=== PATIENT | female | born 1955 | race Caucasian/White ===

== ENCOUNTER 2016-07-15 08:37 | Outpatient (CLI) ==
[2016-03-30 12:26] VITALS: BMI 37.0
[2016-07-15 12:30] LABS: BASOPHILS % (AUTO) 0.6 % (0.0-3.0); EOSINOPHILS # (AUTO) 0.1 K/ul (0.0-0.7); EOSINOPHILS % (AUTO) 1.9 % (0.0-7.0); HEMATOCRIT 45.6 % (37.0-47.0); HEMOGLOBIN 14.7 g/dl (12.0-16.0); IMMATURE GRANULOCYTE % (AUTO) 0.3 % (0.0-5.0); LYMPHOCYTES # (AUTO) 1.3 K/uL (0.60-3.4); LYMPHOCYTES % (AUTO) 20.7 (10.0-50.0); MEAN CORPUSCULAR HEMOGLOBIN 28.6 pg (27.0-31.0); MEAN CORPUSCULAR HGB CONC 32.2 (31.8-35.4); MEAN CORPUSCULAR VOLUME 88.7 fl (81.0-99.0); MONOCYTES # (AUTO) 0.4 K/uL (0.4-2.0); MONOCYTES % (AUTO) 6.6 (0-10); NEUTROPHILS # (AUTO) 4.5 K/ul (2.0-6.9); NEUTROPHILS % (AUTO) 69.9; PLATELET COUNT 278 10^3/uL (140-440); RED BLOOD COUNT 5.14 10^6/ul (4.20-5.40); WHITE BLOOD COUNT 6.48 K/ul (4.6-10.2)
[2016-07-15 12:36] LABS: BILIRUBIN,URINE Negative (NEGATIVE); KETONES,URINE 2+ (NEGATIVE); LEUKOCYTE ESTERASE ,URINE Trace (NEGATIVE); NITRITE,URINE Negative (NEGATIVE); PH,URINE 5.5 (5-9); PROTEIN,URINE Negative (NEGATIVE); URINE, BLOOD Trace-lysed (NEGATIVE)
[2016-07-15 12:39] LABS: ADD URINE MICROSCOPIC YES
[2016-07-15 12:45] LABS: BACTERIA,URINE TRACE (NOT PRESENT)
[2016-07-15 12:52] LABS: ALBUMIN 3.8 g/dL (3.4-5.0); ALBUMIN/GLOBULIN RATIO 1.09; ANION GAP 17.5; BILIRUBIN,TOTAL 1.21 mg/dL (0.00-1.20); CALCIUM 10.3 mg/dL (8.2-10.2); CHOL/HDL RATIO 3.8 (4.5-5.5); CREATININE 0.65 mg/dL (0.60-1.30); POTASSIUM 4.5 mmol/L (3.5-5.10); TOTAL PROTEIN 7.3 g/dL (5.8-8.1)
== END 2016-07-15 08:38 | disposition home or self-care (01) ==
LOC: LAB 08:37
PROVIDERS: ATTEND General Practice
DX: E03.9 Hypothyroidism, unspecified (principal); E11.9 Type 2 diabetes mellitus without complications; E78.5 Hyperlipidemia, unspecified; I10 Essential (primary) hypertension; Z79.899 Other long term (current) drug therapy
CPT/HCPCS: 36415; 80053; 80061; 81001; 83036; 85025; 87086

== ENCOUNTER 2016-08-14 14:58 | Emergency (ER) ==
[2016-08-14 15:09] VITALS: BP 150/84; TEMP 97.5; BMI 43.9
--- NOTE | 2016-08-14 16:34 | DI ---
EXAM: Two views of the chest. History: Thoracic back pain. Comparison: Chest radiograph 01/01/2016 Findings: Upper limits of normal heart size. No focal consolidation. No appreciable pleural fluid and no pneumothorax. No acute osseous abnormalities. Degenerative disc disease of the thoracic sp ine with prominent anterior osteophytes. Small nodular density within the right upper lobe was not c learly seen on the prior studies. Impression: Small right upper lobe nodular density is indeterminate and recommended follow-up with chest radiograph in 3 - [address]
--- NOTE | 2016-08-14 16:35 | DI ---
EXAM: Three views of the thoracic spine. History: Thoracic back pain. Findings: Atherosclerotic vascular calcifications. No acute fracture or subluxation. Mild to mode rate multilevel degenerative disc space narrowing with moderate sized multilevel osteophytes. Impression: No acute osseous abnormality. Mild to moderate degenerative disc disease.
--- NOTE | 2016-08-14 16:48 | ED.PDOC ---
General ED Provider: Dr. RENEE LAWS Chief Complaint: Back Pain Stated Complaint: Back pain; 3 days - worsening at work ([employer]) with twisting and bending. Does not take anything stronger than Tylenol or Motrin. Time Seen by Physician: 16:05 Mode of Arrival: Walk-In Information Source: [facility] Documentation Reviewed and Agree: Yes Review of Systems - Review Of Systems Constitutional: Reports: No symptoms Respiratory: Reports: No symptoms. Denies: Cough, Orthopnea, Short of air Cardiac: Reports: No symptoms. Denies: Chest pain All Other Systems: Reviewed and Negative Past Medical History - Past Medical History Endocrine: Reports: DM 1, DM 2, Hypothyroid Cardiovascular: Reports: Hypertension, A-Fib Respiratory: Reports: None Hematological: Reports: None Gastrointestinal: Reports: None Genitourinary: Reports: None Neuro/Psych: Reports: None Musculoskeletal: Reports: Unknown Cancer: Reports: None Last Menstrual Period: hysterectomy Other Pertinent Past Medical History: IRREGULAR HEART BEAT - Surgical History General Surgical History: Reports: , Cholecystectomy, Hernia Repair, Other - Family History Family History: Reports: Unknown - Social History Smoking Status: Former smoker Hx Substance Use: No Alcohol Screening: None Physical Exam - Physical Exam Appearance: Ill-appearing Ill-appearing: Mild Pain Distress: Moderate Eyes: IAL, EOMI ENT: Oropharynx normal Neck: Supple Respiratory: Airway patent, Breath sounds clear, Respirations nonlabored Cardiovascular: RRR, Pulses normal Musculoskeletal: Normal strength, ROM intact Skin: Warm, Dry, Normal color Neurological: Sensation intact, Motor intact Psychiatric: Affect appropriate, Mood appropriate Critical Care Note - Critical Care Note Total Time (mins): 12 Course - Course Orders, Labs, Meds: Orders Category Date Time Status CHEST, 2 VIEWS PA & LAT Stat RADS 08/14/16 16:05 Completed THORACIC SPINE, 3 VIEWS Stat RADS 08/14/16 16:05 Completed Vital Signs: Temp Pulse Resp BP Pulse Ox 08/14/16 14:59 97.5 F L 81 20 150/84 H 95 Departure - Departure Time of Disposition: 16:44 Disposition: HOME SELF-CARE Discharge Problem: Thoracic back pain Instructions: Back Pain (ED) Condition: Stable Pt referred to PMD for follow-up: Yes (Call for appointment) Additional Instructions: Take two extra strength Tylenol and two Ibuprofen every 4 to 6 hours while awake for the next 2 days. Rest tonight and tomorow - no work. Use heating pad if available. Follow up with primary care next week if not better. Remind him of X rays taken in ER. Allergies/Adverse Reactions: Allergies No Known Drug Allergies Allergy (Unverified 03/30/16 12:17) Home Medications: Ambulatory Orders Aspirin [Aspirin Chewable] 81 mg PO DAILY 01/04/13 Cholecalciferol (Vitamin D3) [Vitamin D3] 2,000 unit PO DAILY 01/04/13 Sotalol HCl [Betapace] 40 mg PO BID #30 tablet 11/09/14 Gabapentin 300 mg PO BID 12/27/14 Cranberry Extract [Cranberry] 500 mg PO DAILY #30 tab-cap 05/28/15 Metformin HCl 500 mg PO BID #60 tab-cap 05/28/15 Hydrochlorothiazide 12.5 mg PO DAILY #30 tab-cap 08/28/15 Acetaminophen 2 tab PO Q6HR PRN 01/01/16 Multivitamin [Multi-Vitamin Daily] 1 each PO DAILY 01/01/16 Amlodipine Besylate 5 mg PO DAILY #30 tablet 01/03/16 Atorvastatin Calcium [Lipitor] 40 mg PO DAILY #30 tablet 01/03/16 Pantoprazole Sodium [Protonix] 40 mg PO QDAC #30 tablet 01/03/16 Escitalopram Oxalate 20 mg PO DAILY #30 tab-cap 01/07/16 Levothyroxine Sodium [Synthroid] 150 mcg PO DAILY 08/14/16 Disposition Discussed With: Patient
== END 2016-08-14 17:00 | disposition home or self-care (01) ==
LOC: ED 14:58
DX: M54.6 Pain in thoracic spine (principal); Z79.899 Other long term (current) drug therapy
CPT/HCPCS: 99282

== ENCOUNTER 2016-09-16 14:23 | Outpatient (CLI) ==
[2016-09-16 14:37] LABS: BILIRUBIN,URINE Negative (NEGATIVE); KETONES,URINE Negative (NEGATIVE); LEUKOCYTE ESTERASE ,URINE Trace (NEGATIVE); NITRITE,URINE Negative (NEGATIVE); PH,URINE 7.5 (5-9); PROTEIN,URINE Negative (NEGATIVE); URINE, BLOOD Negative (NEGATIVE)
[2016-09-16 14:40] LABS: ADD URINE MICROSCOPIC YES
[2016-09-16 14:41] LABS: BACTERIA,URINE TRACE (NOT PRESENT)
[2016-09-16 15:17] LABS: ALBUMIN 3.6 g/dL (3.4-5.0); ANION GAP 14.5; BUN/CREATININE RATIO 15.25; CALCIUM 9.9 mg/dL (8.2-10.2); CREATININE 0.59 mg/dL (0.60-1.30); PHOSPHORUS 2.7 mg/dL (2.8-4.1); POTASSIUM 4.5 mmol/L (3.5-5.10)
== END 2016-09-16 14:24 | disposition home or self-care (01) ==
LOC: LAB 14:23
PROVIDERS: ATTEND General Practice
DX: E11.9 Type 2 diabetes mellitus without complications (principal); E78.5 Hyperlipidemia, unspecified; I10 Essential (primary) hypertension; R31.9 Hematuria, unspecified
CPT/HCPCS: 36415; 80069; 81001; 83036; 84443; 87086

== ENCOUNTER 2016-09-22 10:38 | Outpatient (CLI) ==
[2016-09-22 10:54] LABS: BASOPHILS % (AUTO) 0.5 % (0.0-3.0); EOSINOPHILS # (AUTO) 0.1 K/ul (0.0-0.7); EOSINOPHILS % (AUTO) 1.3 % (0.0-7.0); HEMATOCRIT 44.1 % (37.0-47.0); HEMOGLOBIN 14.7 g/dl (12.0-16.0); IMMATURE GRANULOCYTE % (AUTO) 0.1 % (0.0-5.0); LYMPHOCYTES # (AUTO) 1.7 K/uL (0.60-3.4); LYMPHOCYTES % (AUTO) 21.4 (10.0-50.0); MEAN CORPUSCULAR HEMOGLOBIN 28.7 pg (27.0-31.0); MEAN CORPUSCULAR HGB CONC 33.3 (31.8-35.4); MONOCYTES # (AUTO) 0.5 K/uL (0.4-2.0); MONOCYTES % (AUTO) 6.1 (0-10); NEUTROPHILS # (AUTO) 5.5 K/ul (2.0-6.9); NEUTROPHILS % (AUTO) 70.6; PLATELET COUNT 296 10^3/uL (140-440); RED BLOOD COUNT 5.13 10^6/ul (4.20-5.40); WHITE BLOOD COUNT 7.72 K/ul (4.6-10.2)
[2016-09-22 11:29] LABS: ALBUMIN 3.7 g/dL (3.4-5.0); ANION GAP 15.1; BLOOD UREA NITROGEN 11 mg/dL (7-18); BUN/CREATININE RATIO 17.74; CALCIUM 10.3 mg/dL (8.2-10.2); CARBON DIOXIDE 23 mmol/L (23-31); CHLORIDE 107 mmol/L (98-107); CREATINE KINASE 30 U/L; CREATININE 0.62 mg/dL (0.60-1.30); GLUCOSE 208 mg/dL (82-115); PHOSPHORUS 3.2 mg/dL (2.8-4.1); POTASSIUM 4.1 mmol/L (3.5-5.10); SODIUM 141 mmol/L (136-145)
--- NOTE | 2016-09-22 12:10 | DI ---
EXAM: Two views of the chest. History: Chest pain. Comparison: Chest radiograph 08/14/2016 Findings: Heart size is normal. No focal consolidation. No appreciable pleural fluid and no pneum othorax. No acute osseous abnormalities. Degenerative changes of the spine again noted. The right upper lobe nodular density is no longer clearly seen. Impression: No acute cardiopulmonary process.
== END 2016-09-22 10:39 | disposition home or self-care (01) ==
LOC: LAB 10:38
PROVIDERS: ATTEND General Practice
DX: R07.9 Chest pain, unspecified (principal); R68.84 Jaw pain; M79.602 Pain in left arm
CPT/HCPCS: 36415; 80069; 82550; 83036; 84484; 85025; 93005; 93010

== ENCOUNTER 2016-09-23 06:38 | Outpatient (CLI) ==
[2016-09-23] MEDS ORDERED: DOBUTAMINE 250 ML IV ONE (07:12)
[2016-09-23] MEDS ORDERED: ATROPINE SULFATE PFS ONE (07:12)
--- NOTE | 2016-09-28 09:45 | ECHOSTRESS ---
Date of Exam: 09/23/16 [facility] Reason for Echo: CHEST PAIN, DOBUTAMINE STRESS-NO ISCHEMIA M-Mode Normal Adult Results LV Dimensions Normal Adult Results AoV Opening excursions >1.6 LVEDD-base- 3.5-5.8 Ao root dimensions 2.0-3.7 LVESD-base- 3.1-4.6 L. Atrium dimensions 1.9-3.8 Post. Wall thickness 0.8-1.1 IV septum (thickness) 0.7-1.2 Post. Wall excursion 0.72-1.3 Septal motion Systolic motion R. Ventricular cavity 1.5-2.0 LVEF 60% Paradoxical septal wall motion 2-D: NORMAL LEFT VENTRICULAR CONTRACTILITY--RESTING AND DURING DOBUTAMINE INFUSION M-MODE: MV: AV: TV: PV: CHAMBER SIZE: WALL MOTION: NORMAL LEFT VENTRICULAR CONTRACTILITY--RESTING AND DURING DOBUTAMINE INFUSION PERICARDIUM: INTERPRETATION: 1. NORMAL LEFT VENTRICULAR CONTRACTILITY--RESTING AND DURING DOBUTAMINE INFUSION MTDD
--- NOTE | 2016-09-28 10:31 | DOBSTECHO ---
Ordering Physician: DARYA LAY Date of Test: 09/23/16 Reason for Examination: CHEST PAIN, HYPERTENSION, HX OF A-FIB, LEFT JAW PAIN Current Medications: PANTOPRAZOLE, LEXAPRO, METFORMIN, GABAPENTIN, HCTZ, ATORVASTATIN, AMLODIPINE, LEVOTHYROXINE Height: 64" Weight: 214 LBS Target Heart Rate: 133/157 ST Segment Stage Time HR BPM BP mmhg Rhythm +/- Up Down Comments/Symptoms Control Sitting 61 142/80 SR X NONE Dobutamine 250mg/D5W 5cmg/KG/mn 10cmg/KG/mn 3:00 72 SR X NONE 15cmg/KG/mn 2:00 88 164/78 SR X NONE 20cmg/KG/mn 1:06 105 SR X NONE 25cmg/KG/mn 30cmg/KG/mn 35cmg/KG/mn 40cmg/KG/mn Time: 3" HR B/P Time: 6" HR B/P Time: 8" HR B/P Recovery 80 160/60 Recovery 77 150/70 Recovery 69 Total Time: 6:06 Maximum Heart Rate Reached: 105 Reason for Termination: DUE TO NAUSEA Interpretation: 1. NO EVIDENCE OF ISCHEMIA FROM RESTING HEART RATE 61/MINUTE TO 105/MINUTE WITH DOBUTAMINE INFUSION 2. NO CHEST PAIN OR CHEST DISCOMFORT 3. NORMAL LEFT VENTRICULAR CONTRACTILITY--RESTING AND POST EXERCISE 4. TEST STOPPED DUE TO PATIENT BEING NAUSEATED MTDD
== END 2016-09-23 06:39 | disposition home or self-care (01) ==
LOC: CAR 06:38
PROVIDERS: ATTEND General Practice
DX: R07.9 Chest pain, unspecified (principal); M79.602 Pain in left arm; R68.84 Jaw pain

== ENCOUNTER 2016-11-25 12:02 | Outpatient (CLI) ==
[2016-11-25 13:44] LABS: ALBUMIN 3.6 g/dL (3.4-5.0); ANION GAP 13.6; BUN/CREATININE RATIO 21.66; CALCIUM 10.2 mg/dL (8.2-10.2); CREATININE 0.6 mg/dL (0.60-1.30); PHOSPHORUS 3.5 mg/dL (2.8-4.1); POTASSIUM 4.6 mmol/L (3.5-5.10)
== END 2016-11-25 12:03 | disposition home or self-care (01) ==
LOC: LAB 12:02
PROVIDERS: ATTEND General Practice
DX: E11.9 Type 2 diabetes mellitus without complications (principal)
CPT/HCPCS: 36415; 80069; 83036

== ENCOUNTER 2016-12-02 12:44 | Outpatient (CLI) ==
--- NOTE | 2016-12-04 11:18 | MAMMO ---
EXAM: Digital screening mammogram HISTORY: Screening COMPARISON: 10/30/2010 FINDINGS: Digital MLO and CC views of the right and left breast were performed. There are scatter ed fibroglandular densities. There is no evidence for mass, asymmetry, distortion, or suspicious ca lcifications in either breast. IMPRESSION: 1. No evidence of malignancy in the right or left breast. 2. Annual screening mammogram is recommended in one year. BIRADS category 1, negative examination
== END 2016-12-02 12:45 | disposition home or self-care (01) ==
LOC: RAD 12:44
PROVIDERS: ATTEND General Practice
DX: Z12.31 Encounter for screening mammogram for malignant neoplasm of breast (principal)

== ENCOUNTER 2017-01-20 14:01 | Outpatient (CLI) ==
[2017-01-20 14:10] LABS: BASOPHILS % (AUTO) 0.6 % (0.0-3.0); EOSINOPHILS # (AUTO) 0.1 K/ul (0.0-0.7); EOSINOPHILS % (AUTO) 1.9 % (0.0-7.0); HEMATOCRIT 45.6 % (37.0-47.0); HEMOGLOBIN 15.1 g/dl (12.0-16.0); IMMATURE GRANULOCYTE % (AUTO) 0.3 % (0.0-5.0); LYMPHOCYTES # (AUTO) 1.7 K/uL (0.60-3.4); LYMPHOCYTES % (AUTO) 26.3 (10.0-50.0); MEAN CORPUSCULAR HEMOGLOBIN 28.5 pg (27.0-31.0); MEAN CORPUSCULAR HGB CONC 33.1 (31.8-35.4); MONOCYTES # (AUTO) 0.5 K/uL (0.4-2.0); MONOCYTES % (AUTO) 7.3 (0-10); NEUTROPHILS # (AUTO) 4.1 K/ul (2.0-6.9); NEUTROPHILS % (AUTO) 63.6; PLATELET COUNT 347 10^3/uL (140-440); WHITE BLOOD COUNT 6.46 K/ul (4.6-10.2)
== END 2017-01-20 14:02 | disposition home or self-care (01) ==
LOC: LAB 14:01
PROVIDERS: ATTEND General Practice
DX: E11.9 Type 2 diabetes mellitus without complications (principal); E78.5 Hyperlipidemia, unspecified; I10 Essential (primary) hypertension
CPT/HCPCS: 36415; 82947; 83036; 85025

== ENCOUNTER 2017-02-02 12:29 | Outpatient (CLI) ==
[2017-01-21 08:33] VITALS: BMI 35.9
--- NOTE | 2017-02-03 14:17 | HOLTER ---
PATIENT INFORMATION AND COMMENTS Indications: Atrial Fibrillation with RVR, SOB, FATIGUE Attending Physician: Dr. Aldo Cerda __ Patient Medications: BETAPACE, PROTONIX, METFORMIN, SYNTHROID, HCTZ, GABAPENTIN , LEXAPRO, TRULICITY, CARDIZEM, INVOKANA, LIPITOR, ELIQUIS __ Pre-procedure Summary: Protocol: Standard Heart Rate Started: 02/02/17 1250 Minimum: 53 BPM Weight: 204 LBS Ended: 02/03/17 1250 Maximum: 131 BPM Height: 64" Duration: 24 HOURS Average: 66 BPM _ INTERPRETATIONS/OBSERVATIONS: 1. BASIC RHYTHM: SINUS, RATE 50 BPM TO 100 BPM, AVERAGE 66 BPM 2. INFREQUENT PREMATURE VENTRICULAR CONTRACTIONS NOTED, 3% OF BEATS SCANNED PREMATURE ATRIAL CONTRACTIONS 3. NO TACHY OR ROSA ARRHYTHMIAS 4. NO ST CHANGES FROM BASELINE 5. NO CORRELATION WITH ACTIVITY LOG MTDD
== END 2017-02-02 12:30 | disposition home or self-care (01) ==
LOC: CAR 12:29
PROVIDERS: ATTEND General Practice
DX: I48.91 Unspecified atrial fibrillation (principal); R06.02 Shortness of breath; R53.83 Other fatigue
CPT/HCPCS: 93227

== ENCOUNTER 2017-04-06 15:52 | Outpatient (CLI) ==
[2017-01-21 08:33] VITALS: BMI 35.9
[2017-04-06 16:04] LABS: BASOPHILS # (AUTO) 0.1 K/uL (0-0.2); BASOPHILS % (AUTO) 0.6 % (0.0-3.0); EOSINOPHILS # (AUTO) 0.1 K/ul (0.0-0.7); EOSINOPHILS % (AUTO) 1.7 % (0.0-7.0); HEMATOCRIT 45.9 % (37.0-47.0); HEMOGLOBIN 14.9 g/dl (12.0-16.0); IMMATURE GRANULOCYTE % (AUTO) 0.5 % (0.0-5.0); LYMPHOCYTES # (AUTO) 2.5 K/uL (0.60-3.4); LYMPHOCYTES % (AUTO) 30.5 (10.0-50.0); MEAN CORPUSCULAR HEMOGLOBIN 28.4 pg (27.0-31.0); MEAN CORPUSCULAR HGB CONC 32.5 (31.8-35.4); MEAN CORPUSCULAR VOLUME 87.6 fl (81.0-99.0); MONOCYTES # (AUTO) 0.6 K/uL (0.4-2.0); MONOCYTES % (AUTO) 7.1 (0-10); NEUTROPHILS # (AUTO) 4.8 K/ul (2.0-6.9); NEUTROPHILS % (AUTO) 59.6; PLATELET COUNT 320 10^3/uL (140-440); RED BLOOD COUNT 5.24 10^6/ul (4.20-5.40); WHITE BLOOD COUNT 8.03 K/ul (4.6-10.2)
[2017-04-06 16:06] LABS: BILIRUBIN,URINE Negative (NEGATIVE); KETONES,URINE Negative (NEGATIVE); LEUKOCYTE ESTERASE ,URINE Negative (NEGATIVE); NITRITE,URINE Negative (NEGATIVE); PROTEIN,URINE Negative (NEGATIVE); URINE, BLOOD Trace-intact (NEGATIVE)
[2017-04-06 16:20] LABS: ADD URINE MICROSCOPIC YES
[2017-04-06 16:45] LABS: ALBUMIN 3.8 g/dL (3.4-5.0); ALBUMIN/GLOBULIN RATIO 1.09; ANION GAP 14.1; BILIRUBIN,TOTAL 1.19 mg/dL (0.00-1.20); BUN/CREATININE RATIO 22.22; CALCIUM 10.5 mg/dL (8.2-10.2); CHOL/HDL RATIO 3.5 (4.5-5.5); CREATININE 0.63 mg/dL (0.60-1.30); POTASSIUM 4.1 mmol/L (3.5-5.10); TOTAL PROTEIN 7.3 g/dL (5.8-8.1)
== END 2017-04-06 15:53 | disposition home or self-care (01) ==
LOC: LAB 15:52
PROVIDERS: ATTEND General Practice
DX: E03.9 Hypothyroidism, unspecified (principal); I48.91 Unspecified atrial fibrillation; E11.9 Type 2 diabetes mellitus without complications; E78.5 Hyperlipidemia, unspecified; I10 Essential (primary) hypertension; G62.9 Polyneuropathy, unspecified; Z79.899 Other long term (current) drug therapy
CPT/HCPCS: 36415; 80053; 80061; 81001; 83036; 84443; 85025

== ENCOUNTER 2017-08-03 13:46 | Outpatient (CLI) ==
[2017-01-21 08:33] VITALS: BMI 35.9
== END 2017-08-03 13:47 | disposition home or self-care (01) ==
LOC: FCC-LAB 13:46
PROVIDERS: ATTEND General Practice
DX: E11.9 Type 2 diabetes mellitus without complications (principal); R31.9 Hematuria, unspecified
CPT/HCPCS: 36415; 81001; 83036

== ENCOUNTER 2017-09-17 11:10 | Outpatient (CLI) | payer OTHER ==
[2017-01-21 08:33] VITALS: BMI 35.9
== END 2017-09-17 11:11 | disposition home or self-care (01) ==
LOC: FCC-LAB 11:10
PROVIDERS: ATTEND General Practice
DX: E11.9 Type 2 diabetes mellitus without complications (principal); E78.5 Hyperlipidemia, unspecified; I10 Essential (primary) hypertension
CPT/HCPCS: 36415; 80069; 83036

== ENCOUNTER 2017-11-15 09:11 | Outpatient (CLI) ==
[2017-01-21 08:33] VITALS: BMI 35.9
== END 2017-11-15 09:12 | disposition home or self-care (01) ==
LOC: FCC-LAB 09:11
PROVIDERS: ATTEND General Practice
DX: E11.9 Type 2 diabetes mellitus without complications (principal); E78.5 Hyperlipidemia, unspecified; I10 Essential (primary) hypertension; R31.9 Hematuria, unspecified; E03.9 Hypothyroidism, unspecified; I48.91 Unspecified atrial fibrillation
CPT/HCPCS: 36415; 82947; 83036

== ENCOUNTER 2017-12-03 07:46 | Outpatient (CLI) ==
[2017-01-21 08:33] VITALS: BMI 35.9
--- NOTE | 2017-12-03 09:51 | MAMMO ---
EXAM: Digital screening mammogram with tomosynthesis HISTORY: Screening COMPARISON: 12/02/2016 FINDINGS: Digital MLO and CC views of the right and left breast were performed. Tomosynthesis was performed. Computer aided detection utilized. There are scattered fibroglandular densities. Benign bilateral calcifications There is no evidence for mass, asymmetry, distortion, or suspicious calcific ations in either breast. IMPRESSION: 1. No evidence of malignancy in the right or left breast. 2. Annual screening mammogram is recommended in one year. BIRADS category 2, benign
== END 2017-12-03 07:47 | disposition home or self-care (01) ==
LOC: RAD 07:46
PROVIDERS: ATTEND General Practice
DX: Z12.31 Encounter for screening mammogram for malignant neoplasm of breast (principal)
CPT/HCPCS: 77067

== ENCOUNTER 2017-12-30 10:28 | Outpatient (CLI) ==
[2017-01-21 08:33] VITALS: BMI 35.9
== END 2017-12-30 10:29 | disposition home or self-care (01) ==
LOC: CAR 10:28
PROVIDERS: ATTEND Internal Medicine
DX: I48.91 Unspecified atrial fibrillation (principal)
CPT/HCPCS: 93005; 93010

== ENCOUNTER 2018-01-27 10:01 | Outpatient (CLI) ==
[2017-01-21 08:33] VITALS: BMI 35.9
== END 2018-01-27 10:02 | disposition home or self-care (01) ==
LOC: FCC-LAB 10:01
PROVIDERS: ATTEND General Practice
DX: E11.9 Type 2 diabetes mellitus without complications (principal)
CPT/HCPCS: 36415; 80053; 80061; 81001; 83036; 84443; 85025; 87086

== ENCOUNTER 2018-01-31 12:06 | Outpatient (CLI) ==
[2017-01-21 08:33] VITALS: BMI 35.9
== END 2018-01-31 12:07 | disposition home or self-care (01) ==
LOC: CAR 12:06
PROVIDERS: ATTEND General Practice
DX: I48.91 Unspecified atrial fibrillation (principal)
CPT/HCPCS: 93005; 93010

== ENCOUNTER 2018-03-28 18:23 | Outpatient (CLI) | payer OTHER ==
[2017-01-21 08:33] VITALS: BMI 35.9
== END 2018-03-28 18:24 | disposition home or self-care (01) ==
LOC: LAB 18:23
PROVIDERS: ATTEND General Practice
DX: E11.9 Type 2 diabetes mellitus without complications (principal); E03.9 Hypothyroidism, unspecified; E78.5 Hyperlipidemia, unspecified; Z79.899 Other long term (current) drug therapy
CPT/HCPCS: 36415; 80053; 80061; 81001; 83036; 85025

== ENCOUNTER 2018-08-09 08:06 | Outpatient (CLI) | payer OTHER ==
[2017-01-21 08:33] VITALS: BMI 35.9
== END 2018-08-09 08:07 | disposition home or self-care (01) ==
LOC: RHC-LAB 08:06
PROVIDERS: ATTEND General Practice
DX: E78.5 Hyperlipidemia, unspecified (principal); E11.9 Type 2 diabetes mellitus without complications; E03.9 Hypothyroidism, unspecified; I48.91 Unspecified atrial fibrillation; I10 Essential (primary) hypertension; Z79.899 Other long term (current) drug therapy
CPT/HCPCS: 36415; 80053; 80061; 81001; 83036; 84443; 85025

== ENCOUNTER 2018-09-09 17:07 | Emergency (ER) | payer OTHER ==
[2018-09-09 17:19] VITALS: BP 165/78; TEMP 99.4; BMI 37.8
--- NOTE | 2018-09-09 17:51 | ED.PDOC ---
General ED Provider: Dr. BARBARA VILLEGAS MD Chief Complaint: Respiratory Complaint Stated Complaint: head cold pressure Time Seen by Physician: 17:40 Mode of Arrival: Walk-In Information Source: Patient Exam Limitations: No limitations [facility] Documentation Reviewed and Agree: Yes Does patient meet sepsis criteria?: No If yes, has appropriate treatment been initiated?: Yes System Inflammatory Response Syndrome: Not Applicable Sepsis Protocol: For patient's 13 years and over: Temp is 96.8 and below OR 101 and greater Pulse >90 BPM Resp >20/minute Acutely Altered Mental Status Are patient's symptoms suggestive of a new infection, such as: -Pneumonia -Skin, Soft Tissue -Endocarditis -UTI -Bone, Joint Infection -Implantable Device -Acute Abdominal Infection -Wound Infection -Meningitis -Blood Stream Catheter Infection -Unknown Review of Systems - Review Of Systems Constitutional: Reports: Fever Eyes: Reports: No symptoms Ears, Nose, Mouth, Throat: Reports: No symptoms Respiratory: Reports: No symptoms Cardiac: Reports: No symptoms GI: Reports: No symptoms : Reports: No symptoms Musculoskeletal: Reports: No symptoms Skin: Reports: No symptoms Neurological: Reports: No symptoms Endocrine: Reports: No symptoms Hematologic/Lymphatic: Reports: No symptoms All Other Systems: Reviewed and Negative Past Medical History - Past Medical History Previously Healthy: Yes Endocrine: Reports: DM 1, DM 2, Hypothyroid Cardiovascular: Reports: Hypertension, A-Fib Respiratory: Reports: None Hematological: Reports: None Gastrointestinal: Reports: None Genitourinary: Reports: None Neuro/Psych: Reports: None Musculoskeletal: Reports: Unknown Cancer: Reports: None Last Menstrual Period: unknown Other Pertinent Past Medical History: IRREGULAR HEART BEAT - Surgical History General Surgical History: Reports: , Cholecystectomy, Hernia Repair, Other - Family History Family History: Reports: Unknown - Social History Smoking Status: Former smoker Hx Substance Use: No Alcohol Screening: None Physical Exam - Physical Exam Appearance: Well-nourished, Obese Ill-appearing: Mild Pain Distress: None Eyes: ILA, EOMI, Conjunctiva clear ENT: Ears normal, Oropharynx normal, Rhinorrhea Neck: Supple Respiratory: Airway patent, Breath sounds clear, Breath sounds equal, Respirations nonlabored Cardiovascular: RRR, Pulses normal, No rub, No murmur GI/: Soft, Nontender, No masses, Bowel sounds normal, No Organomegaly Musculoskeletal: Normal strength, ROM intact, No edema, No calf tenderness Skin: Warm, Dry, Normal color Neurological: Sensation intact, Motor intact, Reflexes intact, Cranial nerves intact, Alert, Oriented Psychiatric: Affect appropriate, Mood appropriate Critical Care Note - Critical Care Note Total Time (mins): 0 Course - Course Hematology/Chemistry: 09/09/18 18:02 09/09/18 18:02 Vital Signs: Temp Pulse Resp BP Pulse Ox 09/09/18 17:08 99.4 F 85 20 165/78 H 94 L Departure - Departure Time of Disposition: 19:00 Disposition: HOME SELF-CARE Discharge Problem: URI (upper respiratory infection) Qualifiers: URI type: unspecified viral URI Qualified Code(s): J06.9 - Acute upper respiratory infection, unspecified Instructions: Upper Respiratory Infection (ED) Condition: Good Pt referred to PMD for follow-up: Yes IPMP verified?: No Allergies/Adverse Reactions: Allergies No Known Drug Allergies Allergy (Verified 09/09/18 17:19) Home Medications: Ambulatory Orders Cholecalciferol (Vitamin D3) [Vitamin D3] 2,000 unit PO DAILY 01/04/13 Cranberry Fruit Extract [Cranberry] 500 mg PO DAILY #30 tab-cap 05/28/15 Atorvastatin Calcium [Lipitor] 40 mg PO DAILY #30 tablet 01/03/16 Pantoprazole Sodium [Protonix] 40 mg PO QDAC #30 tablet. 01/03/16 Transfer Form Completed: No Disposition Discussed With: Patient, Family
--- NOTE | 2018-09-09 18:57 | DI ---
EXAM: Two views of the chest. History: Chest pain, low oxygenation Comparison: Chest radiograph 01/21/2017 Findings: Heart size is upper limits of normal. Bronchial wall thickening. No consolidated pneumon ia. No appreciable pleural fluid and no pneumothorax. No acute osseous abnormalities. Degenerative changes of the thoracic spine. Impression: Bronchial wall thickening but no consolidated pneumonia
== END 2018-09-09 19:11 | disposition home or self-care (01) ==
LOC: ED 17:07
DX: J06.9 Acute upper respiratory infection, unspecified (principal)
CPT/HCPCS: 36415; 80048; 85025; 99282

== ENCOUNTER 2018-09-12 08:02 | Outpatient (CLI) | payer OTHER | END 2018-09-12 08:03 | disposition home or self-care (01) | LOC: RHC-LAB 08:02 | PROVIDERS: ATTEND General Practice | DX: E11.9 Type 2 diabetes mellitus without complications (principal); Z00.00 Encounter for general adult medical examination without abnormal findings; E78.5 Hyperlipidemia, unspecified; I10 Essential (primary) hypertension | CPT/HCPCS: 36415; 80053; 83036 ==

== ENCOUNTER 2018-09-14 10:14 | Outpatient (CLI) | payer OTHER ==
--- NOTE | 2018-09-14 10:46 | DI ---
EXAM: Two views of the chest. History: Cough. Comparison: Chest radiograph 09/09/2018 Findings: Heart size is upper limits of normal. Persistent central bronchial wall thickening. No c onsolidation. No pleural fluid and no pneumothorax. No acute osseous abnormalities. Degenerative c hanges of the spine again noted. Impression: Bronchial wall thickening but no consolidated pneumonia. No change compared to the prio r study.
== END 2018-09-14 10:15 | disposition home or self-care (01) ==
LOC: RAD 10:14
PROVIDERS: ATTEND General Practice
DX: R05 Cough (principal)

== ENCOUNTER 2018-09-14 11:34 | Outpatient (CLI) | payer OTHER | END 2018-09-14 11:35 | disposition home or self-care (01) | LOC: RHC-LAB 11:34 | PROVIDERS: ATTEND General Practice | DX: R05 Cough (principal); J02.9 Acute pharyngitis, unspecified | CPT/HCPCS: 87502; 87651 ==

== ENCOUNTER 2018-09-14 12:21 | Inpatient (IN) | payer OTHER ==
[2018-09-14 12:53] VITALS: BMI 37.5
[2018-09-14] MEDS ORDERED: ZITHROMAX 500 MG in SODIUM CHLORIDE 250 ML IV SCH (15:30)
[2018-09-14] MEDS: ROCEPHIN 2 GM in SODIUM CHLORIDE 100 ML IV SCH (17:46)
[2018-09-14] MEDS ORDERED: GLUCOPHAGE PO SCH (22:00)
[2018-09-14] MEDS ORDERED: CARDIZEM PO SCH (22:00)
[2018-09-15] MEDS: PROTONIX PO SCH (05:54)
[2018-09-15] MEDS ORDERED: SYNTHROID PO SCH (06:30)
[2018-09-15] MEDS ORDERED: CARDIZEM PO ONE (06:34)
[2018-09-15] MEDS ORDERED: CARDIZEM PO SCH ×2 (07:00→09:00)
[2018-09-15] MEDS: BETAPACE PO SCH ×3 (08:01→21:00)
[2018-09-15] MEDS: LIPITOR PO SCH (08:01)
[2018-09-15] MEDS: GLUCOPHAGE PO SCH ×2 (08:01→17:34)
[2018-09-15] MEDS: LEXAPRO PO SCH (08:01)
[2018-09-15] MEDS: HYDROCHLOROTHIAZIDE PO SCH (08:02)
[2018-09-15] MEDS: VITAMIN D PO SCH (08:03)
[2018-09-15] MEDS: K-DUR PO SCH ×2 (08:03→17:34)
[2018-09-15] MEDS: NON-FORMULARY MEDICATION (Cranberry Fruit Extract [Cranberry] 500 MG) PO SCH (08:04)
[2018-09-15] MEDS: ELIQUIS PO SCH ×2 (08:05→21:00)
[2018-09-15] MEDS ORDERED: NON-FORMULARY MEDICATION (Atorvastatin Calcium [Lipitor] 40 MG) PO SCH (09:00)
[2018-09-15] MEDS ORDERED: NON-FORMULARY MEDICATION (Cholecalciferol (Vitamin D3) [Vitamin D3] 2,000 UNIT) PO SCH (09:00)
[2018-09-15] MEDS ORDERED: NON-FORMULARY MEDICATION (Hydrochlorothiazide [Hydrochlorothiazide] 12.5 MG) PO SCH (09:00)
[2018-09-15] MEDS: ROCEPHIN 2 GM in SODIUM CHLORIDE 100 ML IV SCH (10:24)
--- NOTE | 2018-09-15 10:25 | RS.SLPCNOT ---
Speech Case Note Date of Note: 09/15/18 Title: Swallow Consult Note: RN called PHYSICAL METEOROLOGIST to discuss swallow consult. RN reported pt verbalized food stuck at the level of the esophagus and a new symptom of jaw tightness. The PHYSICAL METEOROLOGIST consulted with the patient which resulted in discovering pt has a Barretts esophagus for three years. She has new symptoms with the jaw tightening and not opening on command. She stated that the food is getting stuck more frequently and her appetite is poor. The PHYSICAL METEOROLOGIST discussed with the RN this date to refer to the MD about a barium swallow study to address the esophageal symptoms. If MD wants ST to perform MBSS or Bedside swallow evaluation to recommend swallow evaluation. The PHYSICAL METEOROLOGIST did discuss swallow strategies with the pt including pacing , bite size, and posture.
[2018-09-15] MEDS: CARDIZEM PO SCH (21:00)
[2018-09-16] MEDS: PROTONIX PO SCH (05:47)
[2018-09-16] MEDS: SYNTHROID PO SCH (05:49)
[2018-09-16] MEDS: ROCEPHIN 2 GM in SODIUM CHLORIDE 100 ML IV SCH (08:23)
[2018-09-16] MEDS: HYDROCHLOROTHIAZIDE PO SCH (08:23)
[2018-09-16] MEDS: BETAPACE PO SCH ×3 (08:23→22:25)
[2018-09-16] MEDS: K-DUR PO SCH ×2 (08:23→17:02)
[2018-09-16] MEDS: GLUCOPHAGE PO SCH ×2 (08:24→17:02)
[2018-09-16] MEDS: VITAMIN D PO SCH (08:24)
[2018-09-16] MEDS: LIPITOR PO SCH (08:25)
[2018-09-16] MEDS: CARDIZEM PO SCH ×2 (08:25→22:25)
[2018-09-16] MEDS: LEXAPRO PO SCH (08:25)
[2018-09-16] MEDS: NON-FORMULARY MEDICATION (Cranberry Fruit Extract [Cranberry] 500 MG) PO SCH (08:26)
[2018-09-16] MEDS: ELIQUIS PO SCH ×2 (08:26→21:09)
[2018-09-16] MEDS ORDERED: NON-FORMULARY MEDICATION (Dulaglutide [Trulicity] 1.5 MG) SUBCUT SCH (10:06)
[2018-09-16] MEDS ORDERED: CARDIZEM ONE (21:27)
[2018-09-16] MEDS ORDERED: CARDIZEM PO SCH (21:30)
[2018-09-17] MEDS: PROTONIX PO SCH (06:10)
[2018-09-17] MEDS: SYNTHROID PO SCH (06:10)
[2018-09-17] MEDS: K-DUR PO SCH ×2 (08:29→16:56)
[2018-09-17] MEDS: BETAPACE PO SCH (08:29)
[2018-09-17] MEDS: VITAMIN D PO SCH (08:29)
[2018-09-17] MEDS: ROCEPHIN 2 GM in SODIUM CHLORIDE 100 ML IV SCH (08:29)
[2018-09-17] MEDS: NON-FORMULARY MEDICATION (Cranberry Fruit Extract [Cranberry] 500 MG) PO SCH (08:29)
[2018-09-17] MEDS: HYDROCHLOROTHIAZIDE PO SCH (08:30)
[2018-09-17] MEDS: LIPITOR PO SCH (08:30)
[2018-09-17] MEDS: LEXAPRO PO SCH (08:30)
[2018-09-17] MEDS: GLUCOPHAGE PO SCH ×2 (08:30→16:56)
[2018-09-17] MEDS: ELIQUIS PO SCH (08:31)
[2018-09-17] MEDS ORDERED: CARDIZEM PO SCH (09:00)
[2018-09-17 14:19] VITALS: BP 113/71; TEMP 97.5
--- NOTE | 2018-09-19 07:50 | PN ---
DATE OF SERVICE: 09/16/18 SUBJECTIVE: The patient is feeling better, cough is much less. She is not dyspneic or tachypneic. LUNGS: Clear to auscultation HEART: Normal sinus rhythm most of the time, rate about 66. This patient is placed back on Cardizem 30mg twice a day which is the medication at home and the Sotalol is divided to 40mg twice a day instead of 80mg once a day. ABDOMEN: Nontender The patient's CBC is normal. Chemistry more or less normal and GFR is 215, Sugar 244 fasting, AST slightly elevated 44.6, ALT normal. Alkaline phosphatase normal, total protein slightly lower 6.25. TSH is 4.060. No changed in the Levothyroxine dose. MTDD
--- NOTE | 2018-09-19 09:40 | HP ---
DATE OF SERVICE: 09/14/18 CHIEF COMPLAINT: Cough and difficulty swallowing and shortness of breath. HISTORY OF PRESENT ILLNESS: The patient began experiencing nasal congestion with cough some 11 days prior to examination at the office. The patient 5 days before that was at the emergency room because of nasal congestion and pain on a taking a deep breath or when coughing. Cough somewhat productive with some shortness of breath and sore throat. The patient has problems swallowing foot. The patient in the emergency room 09/09/18 had a temperature of 99.4, oxygen saturation 94 at room air, 165/78 blood pressure. Chest x-ray showed bronchial wall thickening but no consolidated pneumonia. No medication prescribed per records review on her visit at the emergency room on 09/09/18. The patient was seen at the office on the day of admission and the patient had shortness of breath with hypoxemia and rales on lung lynch, lower 1/3 with no expiratory wheezing. Breath sounds are diminished. Heart is audible and irregular but not tachycardic. Because of the progressive symptoms the patient was admitted to the hospital PAST PERSONAL HISTORY: Diabetes Mellitus type 2 Sleep apnea on CPAP since 2014 Atrial fibrillation on antiarrhythmic plus anticoagulate medication Degenerative joint disease, knees Dyslipidemia Hypothyroidism on replacement Hypertension IBS Anxiety Depression Previous cholecystectomy Fracture of right ankle, tibial and fibula but not at one time Salivary gland stone that was removed by ENT History of Chest pain, 2015 judged to be noncardiac FAMILY HISTORY: Brother had pancreatic carcinoma and from the disease Mother had atrial fibrillation with pacemaker, senile dementia and TIA at old age Some members of her maternal family had diabetes SOCIAL HISTORY: The patient is and resides alone. She has retired from [employer]. She stopped smoking some 16 years ago and no alcohol. She denies any substance abuse. MEDICATIONS: Vitamin D 3 2,000 international units daily Cranberry fruit extract 500mg daily capsule Lipitor 40mg daily Protonix 40mg before meals once a day Eliquis 5mg twice a day but the patient is only taking one since it is very expensive Lexapro 10mg daily Trulicity 1.5mg SUBCUT weekly had to supply samples to the patient since it is very expensive cost $800 a month. The patient is clearly not able to afford it Sotalol 80mg daily had been reduced from twice a day Levothyroxine Sodium 100mcg daily Metformin 500mg twice a day Diltiazem 30mg twice a day Hydrochlorothiazide 12.5mg daily ALLERGIES: No known drug allergies. REVIEW OF SYSTEMS: CONSTITUTIONAL: The patient had low grade fever, no chills but had fatigue over the last several days of repetitive cough and difficulty swallowing food because of sore throat. SAL[employer]: The patient had no significant headaches. No ataxia. No Syncopal episode or seizure event. VISUAL: Denies any double visions, blurred vision or transient loss of vision. AUDITORY: Hearing is somewhat decreased but no tinnitus. No pain or drainage. It has some sensation of fullness. RESPIRATORY: The patient has cough with shortness of breath. Cough is productive but clear sputum. No hemoptysis. CARDIOVASCULAR: Denies any chest pain or chest oppression. GASTROINTESTINAL: The patient has difficulty swallowing because of the sore throat aggravated but repetitive cough. Denies any abdominal pain or diarrhea. GENITOURINARY: Denies any pain or frequency or urgency of urination. The patient does have stress incontinence. ENDOCRINE: The patient has elevated BMI, Diabetes Mellitus type 2 but no polyuria or polydipsia. INTEGUMENT: Denies any rash or pruritus or spontaneous ecchymosis. HEMATOLOGIC: Negative PSYCHIATRIC: The patient has some depression and on medication and seemed to have improved and sometimes anxiety. Affect is normal. PHYSICAL EXAMINATION: GENERAL: We have a 63 year old female admitted to the hospital because of cough, repetitive, sore throat, difficulty swallowing food and shortness of breath with rales on both lung lynch.Chest x-ray done in ER showed bronchial wall thickening. VITAL SIGNS: Temperature 98.3 oral, pulse 84, blood pressure 163/82, respiratory rate 16, oxygen saturation 94% at room air. 5'4" and 218 pounds 12 ounces. BMI 37.5. HEAD: Unremarkable. Scalp has no active dermatitis. FACE: Symmetrical and equal with no facial weakness. The patient denies any significant tenderness to palpation under pressure in the frontal and maxillary sinus areas. EYES: Pupils equal/reactive to light. Conjunctivae not pale. Sclerae not icteric. MOUTH: Unremarkable THROAT: No inflammation, tumors or exudate. NECK: No masses. No bruit. No tenderness. No rigidity. Supraclavicular areas no masses. CHEST: Symmetrical and equal. Expansion adequate. LUNGS: Breath sounds are diminished with rales, fine on both lower 1/3 posteriorly. No expiratory wheezing. HEART: Audible and regular with good tones. No murmurs. Not tachycardiac. ABDOMEN: Protuberant, soft with no remarkably tenderness. No guarding. Bowel sounds are active. No masses palpable and no bruit. EXTERNAL GENITALIA: Not examined. RECTAL: Not performed. LOWER EXTREMITIES: Essentially symmetrical and equal with no tenderness in the calf muscles. Scar on the right ankle from previous fracture with open reduction. Pedal pulses present. UPPER EXTREMITIES: Symmetrical and equal. ASSESSMENT: 1. Bilateral bronchitis versus pneumonia. 2. Hypoxemia 3. Diabetes mellitus type 2 probably uncontrolled 4. Obstructive sleep apnea on CPAP 5. Elevated BMI 6. Dysphagia 7. History of Wu's Esophagus 8. History of cardiac catheterization without any stent either 2012 or 2013 9. Pain bilateral shoulder 10.History of depression 11.History of smoking, stopped some 16 years ago. 12.Right ankle because of fracture, open reduction internal fixation 13.Cholecystectomy 14. section 15.Umbilical hernia repair 16.Tonsillectomy 17.Colonoscopy 2016 18.Endoscopy 2016 19.Atrial Fibrillation PLAN: 1. Chest x-ray 2. CBC and CMP 3. Urinalysis 4. Blood cultures 5. Sputum cultures 6. Sputum gram stain. TIME SPENT: GREATER THAN 65 MINUTES MTDD
--- NOTE | 2018-09-19 13:26 | PN ---
DATE OF SERVICE: 09/15/18 SUBJECTIVE: She has become omnivorous for that, but not effective. The patient's rate at times would go up to 169. It averages about 131 to 140. The patient was given Cardizem 60mg PO about slightly above 6:00. The patient's heart rate had decreased slowly and the Zithromax also was discontinued at this time thinking that it might have also triggered the arrhythmia. TSH and T4 was ordered to see if maybe they towards the hyperthyroid level and so the medication Levothyroxine will be reduced. The patient had no distress during this episode of tachycardiac. LUNGS: Still has rales in both lower lung lynch. No wheezing. HEART: Audible, irregular and tachycardiac. VITAL SIGNS: Temperature 98.7 oral, pulse rate 66, blood pressure 117/70, respiratory rate 14 and oxygen saturation 95 at 2 liters. MTDD
--- NOTE | 2018-09-21 11:26 | PN ---
DATE OF SERVICE: 09/16/18 SUBJECTIVE: The patient is alert and oriented and feeling better. She was seen by the speech therapist on 09/15/18. The patient now is able to swallow food and the cough more or less has resolved. This patient is receiving Rocephin 2grams intervenously daily. She is put back to Diltiazem 30mg twice a day or ever 12 hours and the Sotalol 40mg twice a day instead of 80mg once a day. The patient' s appetite seems to have improve and is now able to swallow. She had 50% breakfast, 75% lunch and 75% supper and 75% snack. LUNGS: Occasional click at the left base, the right is clear Chest x-ray on the day of admission showed bronchial wall thickening. No pneumonic process. No change from prior study 5 days ago. LABS: Normal WBC, normal hgb and hct. Normal plt count 344,000. Electrolytes normal, BUN 7.9, creatinine 0.31, EGFR 215, Blood sugar 244.3. Normal calcium. AST slightly elevated 44.6. MTDD
[2018-09-23] MEDS ORDERED: NON-FORMULARY MEDICATION (Dulaglutide [Trulicity] 1.5 MG) SUBCUT SCH (09:00)
--- NOTE | 2018-09-23 15:07 | DS ---
DATE OF SERVICE: 09/17/18 PATIENT IDENTIFICATION: 63 year old female seen at the office on the day of admission because of increasing symptoms. She began experiencing symptoms 11 days prior to presentation to the office. The patient had cough, nasal congestion and difficulty eating. She was at the emergency room on 2018 and x-ray showed bronchial wall thickening, but no pneumonic processes. The patient had no medication that was issued in the emergency room. The patient claimed that her symptoms has worsened and now experiencing shortness of breath, as well as difficulty swallowing food. The patient at the office was found to have rales on both posterior chest lynch, lower one third, fine moist rales. The patient was then admitted with a diagnosis of bilateral bronchitis verus pneumonitis. HOSPITAL COURSE: The patient had a chest x-ray of 09/14/2018 which showed no worsening, but no improvement of the bronchial wall thickening. The patient was continued on her medications and was given Zithromax 500 mg IV daily ordered for 3 days. Ceftriaxone 2 mg IV daily. The patient developed some rapid ventricular response from the atrial fibrillation. This patient is known to have atrial fibrillation and so the Cardizem was increased to 60 mg that morning. The heart rate has returned to normal towards the afternoon of the . The patient was not symptomatic with the tachycardia with rates reaching to 169. Zithromax was discontinued that day. We continued the Rocephin. The patient claimed that she was improving. She continued to improve and she had been afebrile. The breathing was better and the cough more or less resolved. She had been able to swallow food better beginning 09/15/2018. Speech therapist had seen her because of her problems on admission. The patient on 04/2019 did eat 100% of breakfast, lunch, dinner and bedtime snack. She continued to swallow better since then. The patient on the day of discharge was alert, ambulatory without any difficulties and no dyspnea. She also denied any pain on both legs on ambulation. The patient did eat 100% of meals today, breakfast, lunch and supper. LUNGS: Occasional click at the left base, none on the right. Breath sounds are still diminished and this is probably because of her size. HEART: Audible and slightly irregular. Not tachycardic. ABDOMEN: Nontender. LOWER EXTREMITIES: No tenderness in the calf muscles. PLAN: 1. This patient is then discharged today and is prescribed Omnicef 300 mg every 12 hours #14. 2. See me 5-6 days from today at the office and was advised to call the office if she has any concerns and if we are not in the office that she should go to the emergency room. 3. Resume previous medications, except divide the Sotalol to 1/2 tablet in the morning and 1/2 tablet in the evening instead of taking 80 mg once a day. Sotalol had already been decreased to one tablet from twice a day previously. 4. This patient was taking Eliquis 5 mg daily only because of cost and also the Trulicity, since again the cost was prohibitive for her costing $800.00 a month. This patient will be given a prescription for the Eliquis with the program known as [employer] and hopefully the copay would be much less. We will explore that more when she comes to the office. So this patient will be able to take the medication that she needs. VITAL SIGNS: Done at 2 p.m., instead of 6 p.m. The 2 o'clock vital signs showed a temperature of 97.5, pulse 61, blood pressure 131/71, respiratory rate 20, oxygen saturation 95 at room air. FINAL DIAGNOSES: 1. BILATERAL BRONCHITIS, RESOLVING 2. HYPOXEMIA, RESOLVED 3. 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 DIABETES MELLITUS, UNCONTROLLED 5. ATRIAL FIBRILLATION WITH CONTROLLED VENTRICULAR RESPONSE WITH AN EPISODE OF RAPID VENTRICULAR RATE LASTING FOR SEVERAL HOURS WHILE IN THE HOSPITAL 6. HYPOTHYROIDISM, REPLACED 7. ELEVATED BMI 37.5 8. HISTORY OF PREVIOUS CARDIAC CATHETERIZATION 2013 PROGNOSIS: Fair. NOTE: The patient was advised to eat more vegatables and also begin slowly increasing exercise, such as walking. TIME SPENT: GREATER THAN 30 MINUTES MTDD
== END 2018-09-17 18:32 | disposition home or self-care (01) | DRG 203 ==
LOC: MEDSURG B 12:21
PROVIDERS: ADMIT General Practice; ATTEND General Practice
DX: J40 Bronchitis, not specified as acute or chronic (principal); E11.65 Type 2 diabetes mellitus with hyperglycemia; E03.9 Hypothyroidism, unspecified; I48.91 Unspecified atrial fibrillation; G47.33 Obstructive sleep apnea (adult) (pediatric); M25.512 Pain in left shoulder; M25.511 Pain in right shoulder; J02.9 Acute pharyngitis, unspecified; R05 Cough; R09.02 Hypoxemia; R13.10 Dysphagia, unspecified; Z68.37 Body mass index [BMI] 37.0-37.9, adult
CPT/HCPCS: 36415; 80053; 82962; 84145; 84436; 84443; 85025; 87040; 87070; 87077; 87186; 87205; 87502; 87651; 93005; 93010; 97802

== ENCOUNTER 2018-09-22 14:41 | Outpatient (CLI) | payer OTHER | END 2018-09-22 14:42 | disposition home or self-care (01) | LOC: RHC-LAB 14:41 | PROVIDERS: ATTEND General Practice | DX: J02.9 Acute pharyngitis, unspecified (principal) | CPT/HCPCS: 87651 ==

== ENCOUNTER 2019-02-07 07:08 | Day surgery (SDC) | payer OTHER ==
[2019-02-07] MEDS: LIDOCAINE 1% 20 ML MDV ID ONE (07:54)
[2019-02-07] MEDS ORDERED: LIDOCAINE 1% 20 ML MDV ID STA (08:09)
[2019-02-07] MEDS ORDERED: DIPRIVAN 20 ML VIAL IVP ONE (10:00)
[2019-02-07 13:22] VITALS: BP 129/76; TEMP 98
--- NOTE | 2019-02-08 11:03 | OP ---
INDICATIONS FOR PROCEDURE: 63 year old female presents for endoscopy surveillance exam of Wu's Disease. She has a history of short segment Wu's. She does tell me that she is having some breakthrough reflux. MEDICATIONS: SEE ANESTHESIA NOTES. PROCEDURE: ENDOSCOPY. ESOPHAGEAL BIOPSY. REPORT: The risks, benefits, alternatives and limitations were discussed in detail with the patient. Informed consent was obtained. After adequate sedation was achieved, the video endoscope was introduced in the posterior pharynx and esophagus under direct vision and easily advanced down to the second portion of the duodenum. I then slowly withdrew. The duodenal mucosa appeared unremarkable as did the duodenal bulb. The antrum body is relatively unremarkable. The scope was retroflexed to look at the cardia and fundus which revealed a small 1cm sliding hiatal hernia. The scope was anteflexed and withdrawn back through the esophagus. The GE junction was irregular with tongues of mucosa extending less than half a cm. Four quadrant and targeted biopsies were obtained from the GE junction. The esophagus was otherwise unremarkable. The patient tolerated the procedure well with stable vital signs and pulse oximetry throughout. IMPRESSION: 1. Short segment Wu's RECOMMENDATIONS: 1. Strict reflux precautions 2. I suggested taking over the counter H2 katelyn as needed as directed for breakthrough heart burn. 3. Await esophageal biopsy results if there is no evidence of dysplasia or atypia I suggest a repeat endoscopy examination for surveillance in three years. 4. We will see her back in the office as needed. CC: Dr. Jona Whitlock. [facility]ITALLeonila
== END 2019-02-07 11:20 | disposition home or self-care (01) ==
LOC: SURG 07:08
PROVIDERS: ATTEND Internal Medicine Gastroenterology
DX: K22.70 Barrett's esophagus without dysplasia (principal); R12 Heartburn

== ENCOUNTER 2019-02-09 08:09 | Outpatient (CLI) | payer OTHER | END 2019-02-09 08:10 | disposition home or self-care (01) | LOC: RHC-LAB 08:09 | PROVIDERS: ATTEND General Practice | DX: E11.65 Type 2 diabetes mellitus with hyperglycemia (principal); E78.5 Hyperlipidemia, unspecified; I10 Essential (primary) hypertension; I48.91 Unspecified atrial fibrillation; Z79.899 Other long term (current) drug therapy | CPT/HCPCS: 36415; 80053; 80061; 81001; 83036; 85025 ==